=== PATIENT | male | born 1980 | race African-American/Black ===

== ENCOUNTER 2022-03-08 18:18 | Emergency (ER) | payer MEDICAID, OTHER ==
[~2022-03-08] VITALS: Ht 190.5 cm; Wt 109.0 kg
[2022-03-08 18:26] VITALS: BP 145/109
[2022-03-08] MEDS ORDERED: ASPIRIN 81MG TABLET PO ONE (23:30)
[2022-03-08 23:51] LABS: CLARITY URINE CLEAR (CLEAR); COLOR URINE DARK YELLOW (YELLOW); KETONES URINE NEGATIVE (NEGATIVE); LEUKOCYTE ESTERASE URINE 1+ (NEGATIVE); NITRITE URINE NEGATIVE (NEGATIVE); OCCULT BLOOD URINE NEGATIVE (NEGATIVE); PH URINE 5.5 (4.5-8.0); PROTEIN URINE 1+ (NEGATIVE); SPECIFIC GRAVITY URINE 1.022 (1.005-1.030)
[2022-03-09 00:20] LABS: BASOPHILS % 0.8 % (0.0-2.0); EOSINOPHILS % 2.4 % (0.0-5.0); HEMATOCRIT. 46.6 % (42.0-52.0); HEMOGLOBIN. 14.8 g/dL (14.0-18.0); LYMPHOCYTES % 33.5 % (20.0-50.0); MEAN CORPUSCULAR HEMOGLOBIN 22.5 pg (28.0-32.0); MEAN CORPUSCULAR VOLUME 70.7 fL (80.0-94.0); MEAN PLATELET VOLUME 7.8 fl (7.4-10.4); MONOCYTES % 7.1 % (2.0-8.0); NEUTROPHILS % 56.2 % (40.0-76.0); PLATELET 226 x1000/uL (130-400); RED BLOOD CELL COUNT 6.58 mill/uL (4.7-6.1); RED CELL DISTRIBUTION WIDTH 17.5 % (11.6-14.6)
[2022-03-09 00:27] LABS: CHLORIDE 105 mEq/L (98-107)
[2022-03-09] MEDS ORDERED: FUROSEMIDE 20MG TABLET PO ONE (00:45)
[2022-03-09] MEDS ORDERED: FURO-152 PO (01:23)
== END 2022-03-09 02:00 | disposition home or self-care (01) ==
LOC: ER 18:18
DX: I50.9 Heart failure, unspecified (principal); F12.10 Cannabis abuse, uncomplicated; Z98.890 Other specified postprocedural states
CPT/HCPCS: 36415; 71045; 80053; 81003; 84484; 85025; 93005; 99285; Z7610